=== PATIENT | male | born 1980 | race Caucasian/White ===

== ENCOUNTER 2019-08-20 08:06 | Day surgery (SDC) | payer MEDICAID ==
[~2019-08-20] VITALS: Ht 182.9 cm; Wt 90.0 kg
[~2019-08-20 08:06] MED LIST: TRAM50TA2 PO; cefazolin/dext.iso 2gm/50ml 50 ML IV ONE
[2019-08-20 08:10] VITALS: BP 114/67
[2019-08-20] MEDS ORDERED: famotidine 20mg tablet PO ONE (08:45)
[2019-08-20] MEDS ORDERED: ringers solution, lacted 1,000 ML IV SCH ×2 (08:45→11:32)
[2019-08-20] MEDS ORDERED: cefazolin/dext.iso 2gm/100 ML IV ONE (08:45)
[2019-08-20] MEDS ORDERED: LIDOcaine 0.5% (5mg/ml) 50ml vial ONE (10:48)
[2019-08-20] MEDS ORDERED: fentaNYL/PF 50MCG/1 ML 2ML syringe ONE (10:50)
[2019-08-20] MEDS ORDERED: MIDAZolam 5mg/5ml vial ONE (10:51)
[2019-08-20] MEDS ORDERED: BUPIVAcaine/PF 2.5mg/ml (0.25%) 10ml vial ONE (10:55)
[2019-08-20] MEDS ORDERED: morphine 4 MG/ML inj SYRINge IV PRN ×2 (11:35)
[2019-08-20] MEDS ORDERED: proCHLORperazine 10 MG/2 ml inj IV PRN (11:35)
[2019-08-20] MEDS ORDERED: meperidine/PF 25mg/ml syringe IV PRN ×3 (11:35)
[2019-08-20] MEDS ORDERED: ondansetron/PF 4mg/2ml inj IV PRN (11:35)
[2019-08-20 11:40] VITALS: BP 117/74
--- NOTE | 2019-08-20 11:40 | NUR ---
Received from OR via , accompanied by Anesthesiologist DR ROSSI and report given by Anesthesiolgist. AWAKE AND LUIS PAIN. VITALS STABLE. DRESSING DI. FINGERS WARM AND PINK.
[2019-08-20 11:50] VITALS: BP 108/68
[2019-08-20 12:00] VITALS: BP 110/66
[2019-08-20 12:10] VITALS: BP 115/59
--- NOTE | 2019-08-20 12:20 | NUR ---
AWAKE AND ORIENTED. VITALS STABLE. DRESSING DI. LUIS PAIN. HOME WITH HIS SPOUSE AT THIS TIME.
== END 2019-08-20 12:20 | disposition home or self-care (01) ==
LOC: PAS 08:06
PROVIDERS: ATTEND Orthopaedic Surgery Hand Surgery
DX: S63.591A Other specified sprain of right wrist, initial encounter (principal); M65.88 Other synovitis and tenosynovitis, other site; Z98.890 Other specified postprocedural states; Z79.899 Other long term (current) drug therapy; Z72.89 Other problems related to lifestyle; X58.XXXA Exposure to other specified factors, initial encounter; Y93.89 Activity, other specified; Y92.89 Other specified places as the place of occurrence of the external cause; Y99.8 Other external cause status
CPT/HCPCS: 29846; J2001; J2250; J3010; J3490; J7120; A4215; A6449; A7000

== ENCOUNTER 2019-09-17 11:08 | Day surgery (SDC) | payer MEDICAID ==
[~2019-09-17] VITALS: Ht 182.9 cm; Wt 220.0 kg
[~2019-09-17 11:08] MED LIST changes: -cefazolin/dext.iso 2gm/50ml 50 ML IV ONE
[2019-09-17 11:24] VITALS: BP 121/68
[2019-09-17] MEDS ORDERED: MIDAZolam 5mg/5ml vial ONE (12:18)
[2019-09-17] MEDS ORDERED: fentaNYL/PF 50MCG/1 ML 2ML syringe ONE (12:18)
[2019-09-17 12:50] VITALS: BP 119/80
[2019-09-17 13:00] VITALS: BP 128/81
[2019-09-17 13:10] VITALS: BP 126/45
[2019-09-17] MEDS ORDERED: NO HOME MEDS (13:11)
[2019-09-17 13:20] VITALS: BP 116/68
== END 2019-09-17 13:32 | disposition home or self-care (01) ==
LOC: GI LAB 11:08
PROVIDERS: ATTEND Internal Medicine Gastroenterology
DX: K92.1 Melena (principal); R19.7 Diarrhea, unspecified; K63.5 Polyp of colon; D12.3 Benign neoplasm of transverse colon; D12.0 Benign neoplasm of cecum; K57.30 Diverticulosis of large intestine without perforation or abscess without bleeding
CPT/HCPCS: 45380; 45385; 99152; 99153; C1773; J2250; J3010; J7040; A4620

== ENCOUNTER 2019-12-30 14:47 | Emergency (ER) | payer MEDICAID ==
[~2019-12-30] VITALS: Ht 182.9 cm; Wt 93.5 kg
[~2019-12-30 14:47] MED LIST changes: +NO HOME MEDS; -TRAM50TA2 PO
[2019-12-30 14:48] VITALS: BP 119/67
[2019-12-30] MEDS ORDERED: proparacaine 0.5% ophthalmic drops 15ml RIGHTEYE ONE (14:55)
[2019-12-30] MEDS ORDERED: CIPR2.5D18 RIGHTEYE (16:46)
== END 2019-12-30 17:12 | disposition home or self-care (01) ==
LOC: ER 14:47
DX: T15.11XA Foreign body in conjunctival sac, right eye, initial encounter (principal); Z79.2 Long term (current) use of antibiotics; X58.XXXA Exposure to other specified factors, initial encounter; Y93.89 Activity, other specified; Y92.89 Other specified places as the place of occurrence of the external cause; Y99.8 Other external cause status
CPT/HCPCS: 65205; 99284

== ENCOUNTER → 2023-06-26 | Outpatient (CLI) | payer BC | END | disposition home or self-care (01) | LOC: RAD 10:24 | PROVIDERS: ATTEND Surgery | DX: K44.9 Diaphragmatic hernia without obstruction or gangrene (principal); R13.10 Dysphagia, unspecified | CPT/HCPCS: 74220 ==

== ENCOUNTER 2023-09-09 05:46 | Day surgery (SDC) | payer BC ==
[~2023-09-09] VITALS: Ht 182.9 cm; Wt 97.6 kg
[2023-09-09] VITALS (24 sets, daily range): BP systolic 109–132; BP diastolic 70–95; PULSE 65–78; RESP 14–22; TEMP 97.6; O2SAT 91–100
[~2023-09-09 05:46] MED LIST changes: +acetaminophen 1,000mg/100ml IV 100 ML IV ONE; +cefazolin 2gm/D5W 100mL 100 ML IV ONE; +famotidine 20mg tablet PO ONE; +hydrALAZINE 20mg/ml inj. IV PRN; +ketorolac trometh. 30mg/ml inj. IV ONE; +labetalol 20mg/4ml (5mg/ml) syringe IV PRN; +meperidine/PF 25mg/ml syringe IV PRN; +morphine 2 MG/ML inj. syringe IV PRN; +morphine 4 MG/ML inj SYRINge IV PRN; +ondansetron/PF 4mg/2ml inj IV PRN; +proCHLORperazine 10 MG/2 ml inj IV PRN; +ringers solution, lacted 1,000 ML IV SCH; +tranexamic acid 650mg tablet PO ONE; +vancomycin 1,500 MG in NS 300ml IV soln IV ONE
[2023-09-09] MEDS ORDERED: BUPIVAcaine/PF 2.5mg/ml (0.25%) 10ml vial ONE (06:49)
[2023-09-09] MEDS ORDERED: midazolam 1 mg/ML 2ml injection ONE ×2 (07:15→07:49)
[2023-09-09] MEDS ORDERED: fentaNYL/PF 50MCG/1 ML 2ML syringe ONE ×2 (07:15→07:53)
[2023-09-09] MEDS ORDERED: sevoflurane 250ml liquid IH ONE (07:20)
[2023-09-09 07:22] LABS: ISTAT CREATININE 1.2 mg/dL (0.8-1.3); ISTAT HGB 12.6 g/dl (14.0-17.9); ISTAT IONIZED CALCIUM 1.26 mmol/L (1.03-1.32); ISTAT K 3.8 mmol/L (3.5-5.1); POC BUN/CREATININE RATIO 8.3 (5.4-32.0)
[2023-09-09] MEDS ORDERED: MIDAZolam 5mg/ml 2ml vial ONE (07:25)
[2023-09-09] MEDS ORDERED: morphine 2 MG/ML inj. syringe IV PRN ×2 (08:00→09:50)
[2023-09-09] MEDS ORDERED: ROPIVAcaine 0.2% (10 MG/5 ML) BOLUS INJECTION INTERSCALE PRN (08:00)
[2023-09-09] MEDS ORDERED: ROPIVAcaine 0.2%/PF PUMP/bolus 545 ML INTERSCALE SCH (08:00)
[2023-09-09] MEDS ORDERED: meperidine/PF 25mg/ml syringe IV PRN ×6 (08:00→09:50)
[2023-09-09] MEDS ORDERED: ondansetron/PF 4mg/2ml inj IV PRN ×2 (08:00→09:50)
[2023-09-09] MEDS ORDERED: proCHLORperazine 10 MG/2 ml inj IV PRN ×2 (08:00→09:50)
[2023-09-09] MEDS ORDERED: morphine 4 MG/ML inj SYRINge IV PRN ×2 (08:00→09:50)
[2023-09-09] MEDS ORDERED: ringers solution, lacted 1,000 ML IV SCH ×2 (08:00→09:50)
[2023-09-09] MEDS ORDERED: ketamine 50mg/5ml syringe ONE (08:22)
[2023-09-09] MEDS ORDERED: ondansetron/PF 4mg/2ml inj ONE (08:37)
[2023-09-09] MEDS ORDERED: propofol inj 20 ML IV ONE (08:37)
[2023-09-09] MEDS ORDERED: acetaminophen 1,000mg/100ml IV 100 ML IV ONE ×2 (08:37→09:50)
[2023-09-09] MEDS ORDERED: dexamethasone sod phosphate 4mg/ml inj. ONE (08:37)
[2023-09-09 08:46] LABS: ALANINE AMINOTRANSFERASE 45 U/L (12-78); ALBUMIN 3.1 G/DL (3.4-5.0); ALBUMIN/GLOBULIN RATIO 0.8 (1.1-1.5); ALKALINE PHOSPHATASE 69 IU/L (46-116); ANION GAP 5 (8-16); ASPARTATE AMINO TRANSFERASE 15 U/L (10-37); BILIRUBIN,TOTAL 0.3 MG/DL (0.1-1.0); BLOOD UREA NITROGEN 11 MG/DL (7-18); BUN/CREATININE RATIO 9.2 (10.0-20.0); CALCIUM 8.8 MG/DL (8.5-10.1); CHLORIDE 105 MMOL/L (99-107); GLUCOSE 104 MG/DL (70-104); POTASSIUM 3.7 MMOL/L (3.5-5.1); SODIUM 138 MMOL/L (135-145); TOTAL PROTEIN 7.2 G/DL (6.4-8.2); eCRCL 87 ML/MIN; eGFR 66 ML/MIN
[2023-09-09] MEDS ORDERED: meperidine/PF 25mg/ml syringe ONE (09:15)
[2023-09-09] MEDS ORDERED: hydrALAZINE 20mg/ml inj. IV PRN (09:50)
[2023-09-09] MEDS ORDERED: labetalol 20mg/4ml (5mg/ml) syringe IV PRN (09:50)
[2023-09-09] MEDS ORDERED: HYDROcodone/acetaminophen 10/325mg tab PO PRN (10:05)
[2023-09-09] MEDS ORDERED: ROPIVAcaine 0.5% (5mg/ml) 30ml vial ONE (12:20)
== END 2023-09-09 14:40 | disposition home or self-care (01) ==
LOC: PAS 05:46
PROVIDERS: ATTEND Orthopaedic Surgery
DX: M19.112 Post-traumatic osteoarthritis, left shoulder (principal); G89.18 Other acute postprocedural pain; Z98.890 Other specified postprocedural states; Z87.891 Personal history of nicotine dependence; Z72.89 Other problems related to lifestyle; Z79.899 Other long term (current) drug therapy
CPT/HCPCS: 23430; 23472; 36415; 64416; 80053; 82948; 87081; C1713; C1776; J0131; J0690; J1100; J2175; J2250; J2405; J2704; J2795; J3010; J3370; J3490; J7030; J7120; Z7506; Z7508; Z7512; 80047; A4565; A4618; A7000